=== PATIENT | male | born 1960 | race Caucasian/White ===

== ENCOUNTER 2021-10-07 16:30 | Inpatient (IN) | payer MEDICARE, SELFPAY ==
--- NOTE | 2021-10-07 16:37 | XR_ITS ---
PROCEDURE INFORMATION: Exam: XR Chest Exam date and time: 10/07/2021 4:49 PM Age: 61 years old Clinical indication: Fever TECHNIQUE: Imaging protocol: XR of the chest. Views: 2 views. COMPARISON: No relevant prior studies available. FINDINGS: Lungs: No acute airspace consolidation. Pleural spaces: Unremarkable. No pleural effusion. No pneumothorax. Heart/Mediastinum: Bilateral calcified hilar region lymph nodes. No mediastinal calcified lymph nodes. Normal heart size. Bones/joints: Unremarkable. IMPRESSION: No acute findings.
[2021-10-07 16:47] VITALS: O2SAT 98
--- NOTE | 2021-10-07 16:59 | PC.NURSE ---
Pt arrived to the floor at this time
[2021-10-07 17:04] VITALS: BP 89/60; PULSE 93; RESP 16; TEMP 37.2; O2SAT 98
[2021-10-07 17:14] VITALS: BMI 23.0
[2021-10-07 17:23] VITALS: BP 66/44
[2021-10-07 17:24] VITALS: BP 114/36; BP 82/49
[2021-10-07 17:48] LABS: Adenovirus,PCR Not Detected (NotDetected); Bordetella Pertussis Not Detected (NotDetected); Chlamydophila Pneumoniae, PCR Not Detected (NotDetected); Coronavirus 19, PCR Not Detected (NotDetected); Coronavirus 229E Not Detected (NotDetected); Coronavirus NL63 Not Detected (NotDetected); Coronavirus OC43 Not Detected (NotDetected); Coronovirus HKU1,PCR Not Detected (NotDetected); Human Metapneumovirus Not Detected (NotDetected); Influenza A, PCR Not Detected (NotDetected); Influenza AH1, 2009 Not Detected (NotDetected); Influenza AH1, PCR Not Detected (NotDetected); Influenza AH3,PCR Not Detected (NotDetected); Influenza B, PCR Not Detected (NotDetected); Mycoplasma Pneumoniae, PCR Not Detected (NotDetected); Parainfluenza 1, PCR Not Detected (NotDetected); Parainfluenza 2, PCR Not Detected (NotDetected); Parainfluenza 3, PCR Not Detected (NotDetected); Respiratory Syncytial Virus Not Detected (NotDetected); Rhinovirus/Enterovirus Not Detected (NotDetected)
--- NOTE | 2021-10-07 17:52 | PC.NURSE ---
Notified Dr Pollock that the pt has had 2 consecutive bp with MAP lower than 65. pt needs sepsis bolus (2188ml) ok per md pt needs covid swab, ok per md does md want ua and urine culture and lactic acid. ok per md [id number]
[2021-10-07 17:53] LABS: Basophils # 0.1 K/mm3 (0-0.2); Basophils % 0.5 % (0.1-2.0); Eosinophils # 0.3 K/mm3 (0.0-0.4); Eosinophils % 2.4 % (0.1-12.0); Hematocrit 28.9 % (42.0-52.0); Hemoglobin 9.4 g/dL (14.1-18.0); Lymphocytes # 1.5 K/mm3 (0.7-4.5); Mean Corpuscular HGB Conc 32.6 g/dL (31.8-35.4); Mean Corpuscular Hemoglobin 31.6 pg (27.0-31.2); Mean Corpuscular Volume 97.1 fl (80-94); Mean Platelet Volume 9.3 fl (7.4-10.4); Monocytes # 0.4 K/mm3 (0.1-1.0); Monocytes % 3.7 % (1.7-9.3); Neutrophils # 9.6 K/mm3 (1.8-7.8); Neutrophils % 80.5 % (37.0-80.0); Platelet Count 421 K/mm3 (142-424); Red Blood Count 2.98 M/mm3 (4.60-6.20); Red Cell Distribution Width 15.1 % (11.5-17.5); White Blood Count 11.9 K/mm3 (4.8-10.8)
[2021-10-07 18:02] LABS: Anion Gap 14.4 mEq/L (5-15); Bilirubin,Total < 0.1 mg/dl (0.2-1.3); Blood Urea Nitrogen 40 mg/dl (9-20); Calcium 8.6 mg/dl (8.4-10.2); Carbon Dioxide 20 mmol/L (22.0-30.0); Chloride 101 mmol/L (98-107); Creatinine Clearance Estimated 19 mL/min (50-200); Estimated Glomerular Filt Rate 15 ml/min (>60); GFR (African American) 18 ML/MIN (>60); Glucose 119 mg/dl (74-100); Lactic Acid 0.8 mmol/L (0.7-2.1); Potassium 4.4 mmoL/L (3.5-5.1); Sodium 131 mmol/L (136-145)
[2021-10-07 18:09] LABS: Activated Partial Thrombo Time 31.7 seconds (22.8-30.6); INR 0.96 (0.9-1.1); Prothrombin Time 10.9 seconds (10.1-12.5)
--- NOTE | 2021-10-07 18:45 | PC.NURSE ---
2nd bag of ns started at 1840 (unable to scan bc of the way the order was entered.) verified with Marshall GOMES
[2021-10-07 19:10] LABS: Microscopic, Urine URINE MICROSCOPIC (MICROSCOPIC)
[2021-10-07 19:12] LABS: Appearance,Urine CLEAR (Clear); Bilirubin,Urine Negative (Negative); Blood, Urine 2+ (Negative); Color,Urine YELLOW (Yellow); Glucose,Urine (UA) Negative (Negative); Ketones,Urine Negative (Negative); Leukocyte Esterase,Urine Negative (Negative); Nitrate,Urine Negative (Negative); Protein,Urine Negative (Negative); Specific Gravity, Urine <= 1.005 (1.005-1.030); Urobilinogen,Urine 0.2 EU/dl (0.2)
--- NOTE | 2021-10-07 19:30 | PC.NURSE ---
[address] Turcios via phone that pt crea is 4.10 and BUN is 40. also notified dr turcios that pt meds needed to be restarted. Dr Turcios stated that he did not wish to reorder home meds at this time
[2021-10-07 19:41] LABS: Parainfluenza 4, PCR Detected (NotDetected)
[2021-10-07 19:47] LABS: Bacteria,Urine Trace /lpf; WBC,Urine Occasional #/hpf (0-3)
[2021-10-07 19:56] LABS: Benzodiazepines Screen,Urine Negative ng/ml (<200)
--- NOTE | 2021-10-07 19:56 | ECG_ITS ---
APPROVED REPORT Exam: Resting ECG HR:85 bpm ECG Measurements Heart Rate 85 AXES NE 198 P 59 QRSd 98 QRS 42 QT 353 T 45 QTc 396 Conclusion SINUS RHYTHM WITH OCCASIONAL VENTRICULAR PREMATURE COMPLEXES BORDERLINE ECG UNCONFIRMED REPORT Electronically signed by : Aleksandr Pollock MD 10/08/2021 17:10:39
[2021-10-07 19:57] LABS: Amphetamine/Metha Screen,Urine Negative ng/ml (<1000); Barbiturates Screen,Urine Negative ng/ml (<200)
[2021-10-07 19:58] LABS: Cannabinoid Screen,Urine Positive ng/ml (<50)
[2021-10-07 19:59] LABS: Cocaine Screen,Urine Negative ng/ml (<300); Methadone Screen,Urine Negative ng/ml (<300)
[2021-10-07 20:00] VITALS: BP 116/64; PULSE 98; RESP 17; TEMP 36.6; O2SAT 94
[2021-10-07 20:00] LABS: Opiate Screen,Urine Negative ng/ml (<300); Phencyclidine Screen,Urine Negative ng/ml (<25)
--- NOTE | 2021-10-07 21:09 | CT_ITS ---
PROCEDURE INFORMATION: Exam: CT Abdomen And Pelvis Without Contrast Exam date and time: 10/07/2021 9:19 PM Age: 61 years old Clinical indication: Fever; Prior surgery; Surgery type: Appendectomy; Additional info: Hematuria and fever TECHNIQUE: Imaging protocol: Computed tomography of the abdomen and pelvis without contrast. Radiation optimization: All CT scans at this facility use at least one of these dose optimization techniques: automated exposure control; mA and/or kV adjustment per patient size (includes targeted exams where dose is matched to clinical indication); or iterative reconstruction. COMPARISON: INVESTIGATOR NARCOTICS/O MRI-L-SPINE W/O 07/21/2016 3:39 PM FINDINGS: Liver: Calcified granulomata within the liver. Gallbladder and bile ducts: Multiple gallstones. Pancreas: Normal. No ductal dilation. Spleen: Multiple calcified splenic granulomata. Adrenal glands: Normal. No mass. Kidneys and ureters: Punctate left renal stones. Stomach and bowel: Hiatal hernia. No obstruction. No mucosal thickening. Appendix: Appendectomy. Intraperitoneal space: Unremarkable. No free air. No significant fluid collection. Vasculature: Moderate atherosclerotic changes are seen within the abdominal aorta and branch vasculature. 3.5 cm infrarenal abdominal aortic aneurysm. Lymph nodes: Unremarkable. No enlarged lymph nodes. Urinary bladder: Unremarkable as visualized. Reproductive: Unremarkable as visualized. Bones/joints: Severe right hip degenerative change and moderate left hip degenerative change. No acute fracture. Soft tissues: Unremarkable. IMPRESSION: 1. Punctate nonobstructing left renal stones. 2. 3.5 cm infrarenal abdominal aortic aneurysm. 3. Cholelithiasis. 4. Hiatal hernia.
--- NOTE | 2021-10-07 21:10 | HMH.HP ---
*Admission Date: 10/07/21 *Chief complaint: Fever and abd pain *History of present illness: 61-year-old new patient to me who arrived at the [place] primary care clinic today to be seen and establish care there, who had an initial complaint of right-sided lower abdominal pain and some difficulty urinating. In the clinic he was found to be febrile with a temperature of 102 degrees. Had heart rate greater than 100 and evidence of hematuria. Given his signs of possible sepsis, he was direct admitted to the hospital for further evaluation. He notes that he is been feeling weak for about 2 weeks, did not notice that he had a fever until today. Noticed vague abdominal pain with some right-sided back pain with some radiation down into his thigh and groin. Denied gross hematuria. Denied burning with urination. Denied URI symptoms. Reports that he has been weak since January of last year when he had COVID-19 that was complicated by stroke necessitating admission at [facility] for several days. Since that time he has been in poor health. Unfortunately he is a very heavy smoker. [facility] History I have reviewed the patient's past medical history: Yes Medical History: Reports:: Anxiety, Cerebrovascular Accident, Depression, Hyperlipidemia, Hypertension, Urinary Tract Infection Denies:: Kidney Stones *Have you ever received a pneumonia vaccine?: Yes *Have you received a flu vaccine this season?: Yes Other Medical History: Denies: Liver Disease Other Surgeries: Yes: Appendectomy - *Social History Last grade of school completed: High school graduate Smoking Status: Current every day smoker Tobacco Type: cigarettes # Packs/Day (cigarettes): 1 Alcohol Intake: former Alcohol Intake Frequency:: 3 or more drinks per day Substance Use Type: marijuana Last Used Substance: hours (ago) *Occupational Status:: disabled Household Members: spouse *Travel in the last 8 weeks: None - Psychiatric History Pschychiatric History:: Reports:: Anxiety, Depression Family Hx:: Cancer, Hypertension, no Mental illness Review of Systems - Review of Systems Review of systems:: pertinent systems reviewed and negative unless documented below Meds Home Medications Medication Instructions Recorded Confirmed Type atorvastatin 20 mg tablet 20 mg PO HS 10/07/21 10/07/21 History ferrous sulfate 325 mg (65 mg 325 mg PO BID 10/07/21 10/07/21 History iron) tablet lisinopril 20 mg tablet 20 mg PO DAILY 10/07/21 10/07/21 History Allergies Allergy/AdvReac Type Severity Reaction Status Date / Time bacitracin Allergy Intermediate Swelling Verified 10/07/21 17:50 [From NEOSPORIN of the Eye ([id number])] polymyxin B Allergy Intermediate Swelling Verified 10/07/21 17:50 [From NEOSPORIN of the Eye ([id number])] neomycin Allergy Mild Swelling Verified 10/07/21 17:50 [From NEOSPORIN of the Eye ([id number])] Exam Vital signs and Labs for Last 24 Hours: Temp Pulse Resp BP Pulse Ox 98.9 F 93 H 16 114/36 L 98 10/07/21 17:04 10/07/21 17:04 10/07/21 17:04 10/07/21 17:24 10/07/21 17:04 Laboratory Results - last 24 hr 10/07/21 17:34: WBC 11.9 H, RBC 2.98 L, Hgb 9.4 L, Hct 28.9 L, MCV 97.1 H, MCH 31.6 H, MCHC 32.6, RDW 15.1, Plt Count 421, MPV 9.3, Neut % (Auto) 80.5 H, Lymph % (Auto) 13.0, [place] % (Auto) 3.7, Eos % (Auto) 2.4, Baso % (Auto) 0.5, Neut # (Auto) 9.6 H, Lymph # (Auto) 1.5, [place] # (Auto) 0.4, Eos # (Auto) 0.3, Baso # (Auto) 0.1 10/07/21 17:34: PT 10.9, INR 0.96, APTT 31.7 H 10/07/21 17:34: Sodium 131 L, Potassium 4.4, Chloride 101, Carbon Dioxide 20 L, Anion Gap 14.4, BUN 40 H, Creatinine 4.10 H, Estimated Creat Clear 19, Estimated GFR 15 L*, Est GFR ( Amer) 18 L*, Glucose 119 H, Calcium 8.6, Total Bilirubin < 0.1 L 10/07/21 17:34: Lactate 0.8 10/07/21 17:37: Chlamy pneumoniae PCR Not detected, Adenovirus (PCR) Not detected, B. pertussis DNA (PCR) Not detected, Coronavirus OC4
--- NOTE | 2021-10-07 21:19 | PC.NURSE ---
patient down off the floor for CT @ this time.
--- NOTE | 2021-10-07 21:30 | PC.NURSE ---
patient back up to floor from CT @ this time.
[2021-10-08 04:00] VITALS: BP 110/68; PULSE 66; RESP 17; TEMP 36.7; O2SAT 94
--- NOTE | 2021-10-08 04:56 | PC.NURSE ---
Patient received remaining of sepsis bolus. This nurse gave 188ml of NS- unable to scan due to way order entered on jul. Patient now receiving maintenance fluids per JUL. Bedalarm on for patient safety. VSS. No complaints at this time.
[2021-10-08 06:00] VITALS: BMI 22.9
[2021-10-08 06:33] LABS: Basophils # 0.1 K/mm3 (0-0.2); Basophils % 0.7 % (0.1-2.0); Eosinophils # 0.2 K/mm3 (0.0-0.4); Eosinophils % 1.8 % (0.1-12.0); Hemoglobin 9.6 g/dL (14.1-18.0); Lymphocytes # 1.2 K/mm3 (0.7-4.5); Lymphocytes % 12.6 % (10-50); Mean Corpuscular HGB Conc 33.1 g/dL (31.8-35.4); Mean Corpuscular Hemoglobin 32.3 pg (27.0-31.2); Mean Corpuscular Volume 97.6 fl (80-94); Mean Platelet Volume 8.1 fl (7.4-10.4); Monocytes # 0.4 K/mm3 (0.1-1.0); Monocytes % 4.3 % (1.7-9.3); Neutrophils # 7.5 K/mm3 (1.8-7.8); Neutrophils % 80.6 % (37.0-80.0); Platelet Count 416 K/mm3 (142-424); Red Blood Count 2.97 M/mm3 (4.60-6.20); Red Cell Distribution Width 14.9 % (11.5-17.5); White Blood Count 9.3 K/mm3 (4.8-10.8)
[2021-10-08 06:41] LABS: Chloride 115 mmol/L (98-107); Potassium 4.4 mmoL/L (3.5-5.1); Sodium 141 mmol/L (136-145)
[2021-10-08 06:44] LABS: Alanine Aminotransferase 17 U/L (12-78); Albumin Level 3.3 g/dl (3.5-5.0); Albumin/Globulin Ratio 1.2 (1.1-1.8); Alkaline Phosphatase 95 U/L (38-126); Anion Gap 11.4 mEq/L (5-15); Aspartate Amino Transferase 34 U/L (17-59); Bilirubin,Total 0.3 mg/dl (0.2-1.3); Blood Urea Nitrogen 32 mg/dl (9-20); Calcium 8.7 mg/dl (8.4-10.2); Carbon Dioxide 19 mmol/L (22.0-30.0); Creatinine Clearance Estimated 27 mL/min (50-200); Estimated Glomerular Filt Rate 22 ml/min (>60); GFR (African American) 27 ML/MIN (>60); Globulin 2.8 g/dL (1.3-3.2); Glucose 104 mg/dl (74-100); Total Protein,Serum 6.1 g/dl (6.3-8.2)
--- NOTE | 2021-10-08 07:13 | HMH.PHAVTE ---
[facility] Pharmacy VTE Monitoring - Patient Demographics Admission date: 10/07/21 Report Date: 10/08/21 Time: 07:13 Allergies/Adverse Reactions: Patient Allergies bacitracin [From NEOSPORIN ([id number])] Allergy (Intermediate, Verified 10/07/21 17:50) Swelling of the Eye polymyxin B [From NEOSPORIN ([id number])] Allergy (Intermediate, Verified 10/07/21 17:50) Swelling of the Eye neomycin [From NEOSPORIN ([id number])] Allergy (Mild, Verified 10/07/21 17:50) Swelling of the Eye Height: 1.78 m Weight: 72.717 kg Patient Problems: Current Active Problems Hematuria (Acute) Acute febrile illness (Acute) Abdominal pain (Acute) Sepsis (Acute) Acute kidney injury (Acute) - VTE Risk Labs: VTE Related Lab Results Hgb 9.6 g/dL (14.1-18.0) L 10/08/21 05:50 Hct 29.0 % (42.0-52.0) L 10/08/21 05:50 Plt Count 416 K/mm3 (142-424) 10/08/21 05:50 PT 10.9 seconds (10.1-12.5) 10/07/21 17:34 INR 0.96 (0.9-1.1) 10/07/21 17:34 APTT 31.7 seconds (22.8-30.6) H 10/07/21 17:34 BUN 32 mg/dl (9-20) H 10/08/21 05:50 Creatinine 2.90 mg/dl (0.66-1.25) H D 10/08/21 05:50 Estimated Creat Clear 27 mL/min (50-200) 10/08/21 05:50 - Prophylaxis VTE Prophylaxis Ordered?: Yes Types of VTE Prophylaxis: TEDS Knee High Location of Applied Device: Bilateral Lower Extremeties
--- NOTE | 2021-10-08 07:17 | HMH.PHAINT ---
MEDICATION RECONCILIATION COMPLETED ON PATIENT USING EXTERNAL FILL HISTORY FROM PHARMACY. -FRANCHESCA FITZGERALD, DONNELLD
--- NOTE | 2021-10-08 07:28 | HMH.ACPN2 ---
Internal Medicine - PN: Subj *Date: 10/08/21 *Time: 08:30 Interval history: Patient feels somewhat better this morning. Continues to complain of generalized achiness, pain in his legs when he gets up and walks for any extended period. This been going on for several years. Was told 9 years ago he needed hip replacements but has never followed through on it. He denies any wounds on his legs, states pain begins from his lower back, better when he is seated. Having improved urine output today. No chest pain or shortness of breath. No syncope or significant cough. Poor appetite. Reviewed morning labs, kidney function showing improvement. Anemia stable. Denies any further reggie hematuria. Exam Vital signs and Labs for Last 24 Hours: Temp Pulse Resp BP Pulse Ox 98.1 F 66 17 110/68 94 L 10/08/21 04:00 10/08/21 04:00 10/08/21 04:00 10/08/21 04:00 10/08/21 04:00 Laboratory Results - last 24 hr 10/07/21 17:34: WBC 11.9 H, RBC 2.98 L, Hgb 9.4 L, Hct 28.9 L, MCV 97.1 H, MCH 31.6 H, MCHC 32.6, RDW 15.1, Plt Count 421, MPV 9.3, Neut % (Auto) 80.5 H, Lymph % (Auto) 13.0, [place] % (Auto) 3.7, Eos % (Auto) 2.4, Baso % (Auto) 0.5, Neut # (Auto) 9.6 H, Lymph # (Auto) 1.5, [place] # (Auto) 0.4, Eos # (Auto) 0.3, Baso # (Auto) 0.1 10/07/21 17:34: PT 10.9, INR 0.96, APTT 31.7 H 10/07/21 17:34: Sodium 131 L, Potassium 4.4, Chloride 101, Carbon Dioxide 20 L, Anion Gap 14.4, BUN 40 H, Creatinine 4.10 H, Estimated Creat Clear 19, Estimated GFR 15 L*, Est GFR ( Amer) 18 L*, Glucose 119 H, Calcium 8.6, Total Bilirubin < 0.1 L 10/07/21 17:34: Lactate 0.8 10/07/21 17:37: Chlamy pneumoniae PCR Not detected, Adenovirus (PCR) Not detected, B. pertussis DNA (PCR) Not detected, Coronavirus OC43 (PCR) Not detected, Coronavirus HKU1 (PCR) Not detected, Coronavirus 229E (PCR) Not detected, SARS-CoV-2 (PCR) Not detected, Coronavirus NL63 (PCR) Not detected, Human Metapneumovir PCR Not detected, Influenza A (H1) PCR Not detected, Influ A (H1N1/09) PCR Not detected, Influenza A (H3) PCR Not detected, Influenza Type A (PCR) Not detected, Influenza Type B (PCR) Not detected, M. pneumoniae (PCR) Not detected, Parainfluenza 1 (PCR) Not detected, Parainfluenza 2 (PCR) Not detected, Parainfluenza 3 (PCR) Not detected, Parainfluenza 4 (PCR) Detected A, RSV (PCR) Not detected, Entero/Rhino (PCR) Not detected 10/07/21 19:00: Urine Color Yellow, Urine Appearance Clear, Urine pH 5.0, Ur Specific [place] <= 1.005, Urine Protein Negative, Urine Glucose (UA) Negative, Urine Ketones Negative, Urine Blood 2+, Urine Nitrate Negative, Urine Bilirubin Negative, Urine Urobilinogen 0.2, Ur Leukocyte Esterase Negative, Urine RBC 5-10, Urine WBC Occasional, Ur Squamous Epith Cells 3-5, Urine Bacteria Trace 10/07/21 19:01: Urine Opiates Screen Negative, Urine Methadone Screen Negative, Ur Barbituates Screen Negative, Ur Phencyclidine Scrn Negative, Ur Amphetamines Screen Negative, U Benzodiazepines Scrn Negative, Urine Cocaine Screen Negative, U Marijuana (THC) Screen Positive H 10/08/21 05:50: WBC 9.3, RBC 2.97 L, Hgb 9.6 L, Hct 29.0 L, MCV 97.6 H, MCH 32.3 H, MCHC 33.1, RDW 14.9, Plt Count 416, MPV 8.1, Neut % (Auto) 80.6 H, Lymph % (Auto) 12.6, [place] % (Auto) 4.3, Eos % (Auto) 1.8, Baso % (Auto) 0.7, Neut # (Auto) 7.5, Lymph # (Auto) 1.2, [place] # (Auto) 0.4, Eos # (Auto) 0.2, Baso # (Auto) 0.1 10/08/21 05:50: Sodium 141, Potassium 4.4, Chloride 115 H, Carbon Dioxide 19 L, Anion Gap 11.4, BUN 32 H, Creatinine 2.90 H D, Estimated Creat Clear 27, Estimated GFR 22 L, Est GFR ( Amer) 27 L D, Glucose 104 H, Calcium 8.7, Total Bilirubin 0.3, AST 34, ALT 17, Alkaline Phosphatase 95, Total Protein 6.1 L, Albumin 3.3 L, Globulin 2.8, Albumin/Globulin Ratio 1.2 I & O for Last 24 hours: Intake & Output 10/05/21 10/06/21 10/07/21 10/08/21 23:59 23:59 23:59 23:59 Intake Total 360 / 360 3756 / 3756 Output Total 1100 / 1600 1500 / 1500 Balance -740 / -1240 2256 / 2256 Weight 72.717 kg
[2021-10-08 08:00] VITALS: BP 118/61; PULSE 86; RESP 16; TEMP 36.8; O2SAT 98
[2021-10-08 12:59] VITALS: BMI 22.9
[2021-10-08 16:00] VITALS: BP 119/67; PULSE 72; RESP 18; TEMP 36.9; O2SAT 96
[2021-10-08 19:26] LABS: Vitamin B12 316 pg/mL (239-931)
--- NOTE | 2021-10-08 19:30 | PC.NURSE ---
There is no change from previous bio. He had a uneventful shift. Will continue to monitor.
[2021-10-08 20:00] VITALS: BP 102/61; PULSE 75; RESP 20; TEMP 37.1; O2SAT 96
[2021-10-09 04:00] VITALS: BP 133/79; PULSE 85; RESP 20; TEMP 36.8; O2SAT 95
--- NOTE | 2021-10-09 05:04 | PC.NURSE ---
Patient rested well throughout out shift. Patient has voided several time throughout shift, bed alarm on for safety. Patient receiving IV maintenance fluids per mar. Vss. No new compliments expressed.
[2021-10-09 05:28] VITALS: BMI 23.1
[2021-10-09 07:23] LABS: Basophils # 0.1 K/mm3 (0-0.2); Basophils % 0.6 % (0.1-2.0); Eosinophils # 0.2 K/mm3 (0.0-0.4); Eosinophils % 2.4 % (0.1-12.0); Hematocrit 28.7 % (42.0-52.0); Hemoglobin 9.3 g/dL (14.1-18.0); Lymphocytes # 1.6 K/mm3 (0.7-4.5); Lymphocytes % 20.4 % (10-50); Mean Corpuscular HGB Conc 32.4 g/dL (31.8-35.4); Mean Corpuscular Hemoglobin 31.5 pg (27.0-31.2); Mean Corpuscular Volume 97.3 fl (80-94); Mean Platelet Volume 7.7 fl (7.4-10.4); Monocytes # 0.4 K/mm3 (0.1-1.0); Monocytes % 4.4 % (1.7-9.3); Neutrophils # 5.6 K/mm3 (1.8-7.8); Neutrophils % 72.1 % (37.0-80.0); Platelet Count 437 K/mm3 (142-424); Red Blood Count 2.95 M/mm3 (4.60-6.20); Red Cell Distribution Width 14.9 % (11.5-17.5); White Blood Count 7.8 K/mm3 (4.8-10.8)
[2021-10-09 07:26] LABS: Chloride 116 mmol/L (98-107)
[2021-10-09 07:29] LABS: Blood Urea Nitrogen 18 mg/dl (9-20); Creatinine Clearance Estimated 49 mL/min (50-200); Estimated Glomerular Filt Rate 44 ml/min (>60); GFR (African American) 53 ML/MIN (>60); Sodium 141 mmol/L (136-145)
[2021-10-09 07:30] LABS: Alanine Aminotransferase 15 U/L (12-78); Albumin Level 3.1 g/dl (3.5-5.0); Albumin/Globulin Ratio 1.1 (1.1-1.8); Alkaline Phosphatase 85 U/L (38-126); Aspartate Amino Transferase 25 U/L (17-59); Bilirubin,Total 0.2 mg/dl (0.2-1.3); Calcium 8.8 mg/dl (8.4-10.2); Carbon Dioxide 22 mmol/L (22.0-30.0); Globulin 2.7 g/dL (1.3-3.2); Glucose 104 mg/dl (74-100); Magnesium 1.6 mg/dl (1.6-2.3); Total Protein,Serum 5.8 g/dl (6.3-8.2)
[2021-10-09 07:45] LABS: Iron 21 ug/dL (49-181)
[2021-10-09 07:54] LABS: Total Iron Binding Capacity 174 ug/dL (261-462)
[2021-10-09 08:00] VITALS: BP 123/84; PULSE 73; RESP 17; TEMP 36.7; O2SAT 100
--- NOTE | 2021-10-09 10:18 | HMH.DCSUM ---
General - General Admission date:: 10/07/21 Discharge date: 10/09/21 HPI HPI: 61-year-old new patient to me who arrived at the [place] primary care clinic today to be seen and establish care there, who had an initial complaint of right-sided lower abdominal pain and some difficulty urinating. In the clinic he was found to be febrile with a temperature of 102 degrees. Had heart rate greater than 100 and evidence of hematuria. Given his signs of possible sepsis, he was direct admitted to the hospital for further evaluation. He notes that he is been feeling weak for about 2 weeks, did not notice that he had a fever until today. Noticed vague abdominal pain with some right-sided back pain with some radiation down into his thigh and groin. Denied gross hematuria. Denied burning with urination. Denied URI symptoms. Reports that he has been weak since January of last year when he had COVID-19 that was complicated by stroke necessitating admission at [facility] for several days. Since that time he has been in poor health. Unfortunately he is a very heavy smoker. Hospital Course Hospital Course: 61-year-old male who presented to outpatient clinic with symptoms consistent with sepsis. Had tachycardia, hypotension, fever, concern for urinary source/abdominal source. Symptoms defervesced with IV fluids. Responded well to treatment. HARVEY resolved. Unclear baseline but creatinine almost normal on day of discharge. Anemia stable. B12 within a normal range and iron studies low. Tolerating p.o. intake. Afebrile for over 24 hours. Acute issues resolved, stable for discharge home. Close follow-up in the outpatient setting. Problems addressed during hospitalization as follows: Sepsis Hypotension HARVEY -Gated on fluids and antibiotics. Responded well with improvement in creatinine. Received 48 hours of Levaquin however no focal sources of infection. Chest x-ray clear. No focal intra-abdominal pathology. Respiratory panel positive for parainfluenza. Urine not concerning for UTI. Will discontinue antibiotics at this time. -Continue oral rehydration at home. We will stop blood pressure medication as he has been normotensive and do not want to cause further kidney injury. Close follow-up for continued monitoring and management in the outpatient setting. Hematuria Anemia -Hematuria resolved. However given his smoking history, would benefit from urology consult as an outpatient appears to have resolved this morning. -Anemia work-up with B12 and iron studies, iron quite low. B12 normal. We will continue iron supplementation in the outpatient setting. Would benefit from iron infusion. Peripheral smear ordered, pending at discharge. Complex social history. Generalized anxiety, marijuana use, polysubstance use with apparently heavy alcohol use and nicotine dependence complicate all aspects of his care. Reported history of stroke - patient is not on antiplatelet agent. No focal deficits. We will continue to evaluate in the outpatient setting by obtaining prior medical records. Outpatient recommendations for follow-up by PCP: - Recommend labs at follow-up. - CT noted to have 3.5 cm infrarenal aortic aneurysm, recommend follow-up imaging within the next 5 years - Low back/hip pain, discussed working up as an outpatient - Recommend urology consult for further assessment of hematuria in setting of anemia and smoking history. -Recommend following up on peripheral smear -Recommend considering IV iron infusion as an outpatient Objective Vital signs: Temp Pulse Resp BP Pulse Ox 98.1 F 73 17 123/84 100 10/09/21 08:00 10/09/21 08:00 10/09/21 08:00 10/09/21 08:00 10/09/21 08:00 Narrative: - Constitutional no acute distress, chronically ill appearing - *Routine HEENT Exam Head: Present: normocephalic Eye: Present: EOMI, PERRL ENT: Present: mucous membranes moist, poor and absent den
--- NOTE | 2021-10-09 11:11 | HMH.PHAINT ---
DISCHARGE MEDICATION COUNSELING PROVIDED. DISCUSSED STOPPING THE LISINOPRIL, STARTING ATORVASTATIN (TAKE AT BEDTIME, WATCH FOR MUSCLE PAIN), CHANGE TO THE FERROUS SULFATE FROM TWICE DAILY TO ONCE DAILY. PATIENT ENDORSED NO QUESTIONS AT THIS TIME.
[2021-10-10 17:33] LABS: Peripheral Smear Review Scanned Result
== END 2021-10-09 11:50 | disposition home or self-care (01) | DRG 872 ==
PROVIDERS: Internal Medicine Adolescent Medicine; Admitting Provider Internal Medicine Adolescent Medicine; PCP Internal Medicine Adolescent Medicine; Referring Provider Internal Medicine Adolescent Medicine; Visit Provider Internal Medicine Adolescent Medicine
DX: A41.9 Sepsis, unspecified organism (principal); N17.9 Acute kidney failure, unspecified; R10.9 Unspecified abdominal pain; F41.9 Anxiety disorder, unspecified; Z86.73 Personal history of transient ischemic attack (TIA), and cerebral infarction without residual deficits; F32.A Depression, unspecified; E78.5 Hyperlipidemia, unspecified; I10 Essential (primary) hypertension; Z86.16 Personal history of COVID-19; F17.290 Nicotine dependence, other tobacco product, uncomplicated; F12.90 Cannabis use, unspecified, uncomplicated; R31.9 Hematuria, unspecified; D53.9 Nutritional anemia, unspecified
CPT/HCPCS: 36415; 71046; 74176; 80048; 80053; 80305; 81001; 82247; 82607; 83540; 83550; 83605; 83735; 85025; 85610; 85730; 87040; 87086; 87581; 87632; 87798; 93005; C9803; J1956; U0003; U0005

== ENCOUNTER → 2021-10-12 12:54 | Outpatient (CLI) | payer MEDICARE, SELFPAY ==
--- NOTE | 2021-10-12 13:03 | XR_ITS ---
FINAL REPORT CLINICAL HISTORY: RT HIP PAIN, patient unable tolerate leg extended all the way out for frog leg, rolled patient up on hip, no injury FINDINGS: RIGHT HIP Four views were obtained. There is no acute fracture or dislocation. There are severe degenerative changes of the right hip. Multiple subchondral cysts are seen in the femoral head and superior acetabulum. No soft tissue abnormality is identified. IMPRESSION: Degenerative changes as detailed above. Reviewed, Interpreted and Dictated by Murray Renae III, MD Transcribed by Anya Prince Authenticated and . [facility]
--- NOTE | 2021-10-12 13:03 | XR_ITS ---
FINAL REPORT CLINICAL HISTORY: LT HIP PAIN, no injury FINDINGS: LEFT HIP Three views were obtained. There is no acute fracture or dislocation. There are severe degenerative changes of the right hip and moderate degenerative changes of the left hip. There are severe degenerative changes in the lower lumbar spine. No soft tissue abnormality is identified. IMPRESSION: Degenerative changes as detailed above. Reviewed, Interpreted and Dictated by Murray Renae III, MD Transcribed by Anya Prince Authenticated and [facility]
== END ==
PROVIDERS: PCP Internal Medicine Adolescent Medicine; Visit Provider Internal Medicine Adolescent Medicine
DX: M25.552 Pain in left hip (principal); M25.551 Pain in right hip
CPT/HCPCS: 73502

== ENCOUNTER 2021-10-27 12:52 | Outpatient (CLI) | payer MEDICARE, SELFPAY ==
[2021-10-27 13:10] VITALS: BP 113/78; PULSE 87; RESP 18; O2SAT 98
[2021-10-27 13:50] VITALS: BP 128/78; PULSE 75; RESP 16
== END 2021-10-27 14:00 | disposition home or self-care (01) ==
LOC: INF 12:53
PROVIDERS: PCP Internal Medicine Adolescent Medicine; Visit Provider Internal Medicine Adolescent Medicine
DX: E61.1 Iron deficiency (principal); D64.9 Anemia, unspecified
CPT/HCPCS: 96365; J1439

== ENCOUNTER 2021-11-03 13:14 | Outpatient (CLI) | payer MEDICARE, SELFPAY ==
[2021-11-03 13:30] VITALS: BP 131/81; PULSE 91; RESP 18; TEMP 36.6; O2SAT 97
[2021-11-03 14:07] VITALS: BP 117/71; PULSE 76; RESP 18; O2SAT 98
== END 2021-11-03 14:07 | disposition home or self-care (01) ==
LOC: INF 13:15
PROVIDERS: PCP Internal Medicine Adolescent Medicine; Visit Provider Internal Medicine Adolescent Medicine
DX: E61.1 Iron deficiency (principal)
CPT/HCPCS: 96365; J1439

== ENCOUNTER → 2022-07-18 23:25 | Outpatient (CLI) | payer MEDICARE, SELFPAY ==
[2022-07-18 18:49] LABS: Basophils % 0.5 % (0.1-2.0); Eosinophils # 0.3 K/mm3 (0.0-0.4); Eosinophils % 4.1 % (0.1-12.0); Hematocrit 39.9 % (42.0-52.0); Hemoglobin 12.5 g/dL (14.1-18.0); Lymphocytes # 2.3 K/mm3 (0.7-4.5); Mean Corpuscular HGB Conc 31.5 g/dL (31.8-35.4); Mean Corpuscular Hemoglobin 30.3 pg (27.0-31.2); Mean Corpuscular Volume 96.3 fl (80-94); Mean Platelet Volume 9.3 fl (7.4-10.4); Monocytes # 0.4 K/mm3 (0.1-1.0); Monocytes % 4.6 % (1.7-9.3); Neutrophils # 4.7 K/mm3 (1.8-7.8); Neutrophils % 60.9 % (37.0-80.0); Platelet Count 506 K/mm3 (142-424); Red Blood Count 4.14 M/mm3 (4.60-6.20); Red Cell Distribution Width 13.5 % (11.5-17.5); White Blood Count 7.7 K/mm3 (4.8-10.8)
[2022-07-18 19:01] LABS: Alanine Aminotransferase 21 U/L (12-78); Albumin Level 4.3 g/dl (3.5-5.0); Albumin/Globulin Ratio 1.6 (1.1-1.8); Alkaline Phosphatase 115 U/L (38-126); Anion Gap 10.8 mEq/L (5-15); Aspartate Amino Transferase 27 U/L (17-59); Bilirubin,Total 0.3 mg/dl (0.2-1.3); Blood Urea Nitrogen 12 mg/dl (9-20); Calcium 9.4 mg/dl (8.4-10.2); Carbon Dioxide 30 mmol/L (22.0-30.0); Chloride 103 mmol/L (98-107); Chol/HDL Ratio 2.7 (1-3.5); Cholesterol 126 mg/dl (140-200); Estimated Glomerular Filt Rate 85 ml/min (>60); GFR (African American) 103 ML/MIN (>60); Globulin 2.7 g/dL (1.3-3.2); Glucose 110 mg/dl (74-100); HDL Cholesterol 46 mg/dl (40-60); Potassium 4.8 mmoL/L (3.5-5.1); Sodium 139 mmol/L (136-145); Triglycerides 103 mg/dl (30-150); VLDL Cholesterol 21 mg/dL (0-40)
[2022-07-18 19:12] LABS: Direct LDL Cholesterol 57.73 mg/dL (100-129)
[2022-07-18 19:18] LABS: Free T4 (Free Thyroxine) 1.03 ng/dl (0.78-2.19)
[2022-07-18 19:19] LABS: 25-OH Vitamin D, Total 33.6 ng/mL (30-100)
[2022-07-18 19:32] LABS: Prostate Specific Ag Screen 0.7 ng/ml (0.0-4.0); Thyroid Stimulating Hormone 2.33 uIU/mL (0.465-4.68)
== END ==
PROVIDERS: PCP Emergency Medicine; Visit Provider Emergency Medicine
DX: R10.9 Unspecified abdominal pain (principal); R31.9 Hematuria, unspecified; I63.9 Cerebral infarction, unspecified; R50.9 Fever, unspecified; E55.9 Vitamin D deficiency, unspecified; Z12.5 Encounter for screening for malignant neoplasm of prostate
CPT/HCPCS: 80053; 80061; 82306; 84439; 84443; 85025; G0103

== ENCOUNTER → 2022-08-25 09:49 | Outpatient (CLI) | payer MEDICARE, SELFPAY ==
--- NOTE | 2022-08-25 09:54 | XR_ITS ---
FINAL REPORT CLINICAL HISTORY: bilateral hip pain many years COMPARISON: 10/12/2021 FINDINGS: Left hip Two views were obtained. There is no acute fracture or dislocation. There are moderate degenerative changes, visually somewhat worse than previous. There are severe degenerative changes in the lower lumbar spine. No soft tissue abnormality is identified. IMPRESSION: Worsening degenerative changes of the left hip. Reviewed, Interpreted and Dictated by Murray Renae III, MD Transcribed by Anya Prince Authenticated and [facility]
--- NOTE | 2022-08-25 09:54 | XR_ITS ---
FINAL REPORT CLINICAL HISTORY: bilateral hip pain many years COMPARISON: 10/12/2021 FINDINGS: Right hip Three views were obtained. There is no acute fracture or dislocation. There is severe degenerative changes, somewhat worse. There are also severe degenerative changes in the lower lumbar spine. No soft tissue abnormality is identified. IMPRESSION: Severe degenerative changes of the right hip, somewhat worse. Reviewed, Interpreted and Dictated by Murray Renae III, MD Transcribed by Anya Prince Authenticated and . [facility]
== END ==
PROVIDERS: PCP Emergency Medicine; Visit Provider Orthopaedic Surgery
DX: M25.551 Pain in right hip (principal); M25.552 Pain in left hip
CPT/HCPCS: 73502